=== PATIENT | female | born 1990 | race African-American/Black ===

== ENCOUNTER 2017-09-02 15:57 | Emergency (ER) | payer MEDICAID, OTHER ==
[~2017-09-02 15:57] MED LIST: REST30CA PO; RISP2TAB2 PO
[2017-09-02 16:39] VITALS: BP 142/65; PULSE 83; RESP 18; TEMP 97.2; O2SAT 100
[2017-09-02] MEDS ORDERED: ACETAMINOPHEN 325 MG TAB PO ONE (17:30)
[2017-09-02] MEDS ORDERED: ARIPiprazole 5 MG TAB PO ONE (17:30)
--- NOTE | 2017-09-02 17:30 | PD ---
HPI Chief Complaint: Psychiatric Symptoms Time Seen by Provider: 17:24 Travel History International Travel<30 days: No Contact w/Intl Traveler<30days: No Traveled to known affect area: No History of Present Illness HPI 26-year-old female history of schizophrenia presents under Ham act initiated by nurse practitioner at [facility] outpatient clinic. According to the Ham act form, "patient is stating that she wants to kill her self (she plans to run into the wall with a knife to her chest). Patient is stating that she desired to kill others (" anyone that comes after me") "hoping and praying that they , they are trying to torture me." She completed a PHQ9 with a score of 23 and indicating that she is having thoughts of being better off or of hurting herself." The patient endorses previous thoughts of suicidal ideation but none currently. She does endorse auditory hallucinations on a chronic basis. She is denying any homicidal ideation, drug or alcohol use. She is not currently under any treatment regimen for her schizophrenia. Her only medical complaint at this time is of a migraine. PFSH Past Medical History Asthma: Yes Blood Disorders: No Cardiovascular Problems: No Diminished Hearing: No Endocrine: No Genitourinary: No Immune Disorder: No Musculoskeletal: No Neurologic: No Reproductive: No Respiratory: No Schizophrenia: Yes : 2 Para: 2 Past Surgical History Section: Yes (X2) Other Surgery: No Social History Alcohol Use: No Tobacco Use: Yes Substance Use: No Allergies-Medications (Allergen,Severity, Reaction): Coded Allergies: No Known Allergies (Verified , 10/13/13) Reported Meds & Prescriptions Reported Meds & Active Scripts Active Review of Systems Except as stated in HPI: all other systems reviewed are Neg Physical Exam Narrative GENERAL: Well-nourished female in no acute distress SKIN: Warm and dry. HEAD: Atraumatic. Normocephalic. EYES: Pupils equal and round. No scleral icterus. No injection or drainage. ENT: No nasal bleeding or discharge. Mucous membranes pink and moist. NECK: Trachea midline. No JVD. CARDIOVASCULAR: Regular rate and rhythm. No murmur appreciated. RESPIRATORY: No accessory muscle use. Clear to auscultation. Breath sounds equal bilaterally. GASTROINTESTINAL: Abdomen soft, non-tender, nondistended. Hepatic and splenic margins not palpable. MUSCULOSKELETAL: No obvious deformities. No clubbing. No cyanosis. No edema. NEUROLOGICAL: Awake and alert. No obvious cranial nerve deficits. Motor grossly within normal limits. Normal speech. PSYCHIATRIC: Flat affect, insight and judgment appear reasonable. Data Data Last Documented VS Vital Signs Date Time Temp Pulse Resp B/P (MAP) Pulse Ox O2 Delivery O2 Flow Rate FiO2 09/02/17 16:39 97.2 83 18 142/65 (90) 100 Room Air Orders Orders Complete Blood Count With Diff (09/02/17 17:08) Comprehensive Metabolic Panel (09/02/17 17:08) Ed Urine Pregnancytest Poc (09/02/17 17:08) Psych Screen (09/02/17 17:08) Drug Screen, Random Urine (09/02/17 17:08) Alcohol (Ethanol) (09/02/17 17:08) Acetaminophen (Tylenol) (09/02/17 17:30) Aripiprazole (Abilify) (09/02/17 17:30) Diet Regular Basic (09/02/17 Dinner) Labs Laboratory Tests Test 09/02/17 18:40 09/02/17 19:15 White Blood Count 7.0 TH/MM3 Red Blood Count 4.57 MIL/MM3 Hemoglobin 12.7 GM/DL Hematocrit 37.6 % Mean Corpuscular Volume 82.4 FL Mean Corpuscular Hemoglobin 27.8 PG Mean Corpuscular Hemoglobin Concent 33.8 % Red Cell Distribution Width 14.7 % Platelet Count 210 TH/MM3 Mean Platelet Volume 10.8 FL Neutrophils (%) (Auto) 51.4 % Lymphocytes (%) (Auto) 37.1 % Monocytes (%) (Auto) 8.7 % Eosinophils (%) (Auto) 2.0 % Basophils (%) (Auto) 0.8 % Neutrophils # (Auto) 3.6 TH/MM3 Lymphocytes # (Auto) 2.6 TH/MM3 Monocytes # (Auto) 0.6 TH/MM3 Eosinophils # (Auto) 0.1 TH/MM3 Basophils # (Auto) 0.1 TH/MM3 CBC Comment DIFF FINAL Differential Comment Blood Urea Nitrogen 13 MG/DL Creatinine 0.94 MG/DL Random Glucose 89 MG/DL Total Protein 7.6 GM/DL Albumin 3.6 GM/DL Calcium Level 8.7 MG/DL Alkaline Phosphatase 59 U/L Aspartate Amino Transf (AST/SGOT) 14 U/L Alanine Aminotransferase (ALT/SGPT) 19 U/L Total Bilirubin 0.3 MG/DL Sodium Level 138 MEQ/L Potassium Level 3.8 MEQ/L Chloride Level 104 MEQ/L Carbon Dioxide Level 27.7 MEQ/L Anion Gap 6 MEQ/L Estimat Glomerular Filtration Rate 86 ML/MIN Ethyl Alcohol Level LESS THAN 3 MG/DL Urine Opiates Screen NEG Urine Barbiturates Screen NEG Urine Amphetamines Screen NEG Urine Benzodiazepines Screen NEG Urine Cocaine Screen NEG Urine Cannabinoids Screen NEG MDM Medical Decision Making Medical Screen Exam Complete: Yes Emergency Medical Condition: Yes Medical Record Reviewed: Yes Differential Diagnosis Acute psychosis, substance-induced mood disorder, medication noncompliance, major depressive disorder, schizophrenia, schizoaffective disorder Narrative Course 26-year-old female presents under Ham act for psychiatric evaluation. Mental health screening discussed with the patient. Psychiatric screen ordered. The patient is medically cleared for psychiatric disposition. Diagnosis Primary Impression: Medical clearance for psychiatric admission Jamie Suarez Sep 02, 2017 17:30
[2017-09-02 19:13] LABS: AUTOMATED NEUTROPHIL # 3.6 TH/MM3 (1.8-7.7); BASOPHIL # 0.1 TH/MM3 (0-0.2); BASOPHIL % 0.8 % (0.0-2.0); EOSINOPHIL # 0.1 TH/MM3 (0-0.4); HEMATOCRIT 37.6 % (35.0-46.0); HEMO FLAGS DIFF FINAL; LYMPH % 37.1 % (9.0-44.0); LYMPHOCYTE # 2.6 TH/MM3 (1.0-4.8); MEAN CELL VOLUME 82.4 FL (80.0-100.0); MEAN CORPUSCULAR HEMOGLOBIN 27.8 PG (27.0-34.0); MEAN CORPUSCULAR HGB CONC 33.8 % (32.0-36.0); MONO % 8.7 % (0.0-8.0); NEUT % 51.4 % (16.0-70.0); PLATELET COUNT 210 TH/MM3 (150-450); RED BLOOD COUNT 4.57 MIL/MM3 (4.00-5.30); RED CELL DISTRIBUTION WIDTH 14.7 % (11.6-17.2)
[2017-09-02 19:36] LABS: ANION GAP 6 MEQ/L (5-15); AST (GOT) 14 U/L (15-37); BICARBONATE 27.7 MEQ/L (21.0-32.0); BLOOD UREA NITROGEN 13 MG/DL (7-18); CHLORIDE 104 MEQ/L (98-107); GLOMERULAR FILTRATION RATE 86 ML/MIN (>89); POTASSIUM 3.8 MEQ/L (3.5-5.1); SODIUM (NA) 138 MEQ/L (136-145)
[2017-09-02 19:40] LABS: ALKALINE PHOSPHATASE 59 U/L (45-117); ALT (GPT) 19 U/L (10-53); TOTAL BILIRUBIN ADULT 0.3 MG/DL (0.2-1.0)
[2017-09-02 19:48] LABS: ALCOHOL LESS THAN 3 MG/DL (0-5)
[2017-09-02 22:49] VITALS: BP 124/59; PULSE 68; RESP 18; O2SAT 98
[2017-09-03 02:42] VITALS: BP 120/56; PULSE 64; RESP 16; TEMP 98.6; O2SAT 96
[2017-09-03 06:28] VITALS: BP 120/57; PULSE 69; RESP 16; TEMP 97.6; O2SAT 99
--- NOTE | 2017-09-03 15:00 | PD ---
History of Present Illness Chief Complaint: Psychiatric Symptoms Time Seen by Provider: 14:00 Travel History International Travel<30 Days: No Contact w/Intl Traveler<30days: No Known affected area: No Legal Status Legal Status: Ham Act Ham Act Signed By: Shantel Hays History of Present Illness: History of Present Illness HPI 26-year-old female history of schizophrenia presents under Ham act initiated by nurse practitioner at [facility] outpatient clinic. According to the Ham act form, "patient is stating that she wants to kill her self (she plans to run into the wall with a knife to her chest). Patient is stating that she desired to kill others (" anyone that comes after me") "hoping and praying that they , they are trying to torture me." She completed a PHQ9 with a score of 23 and indicating that she is having thoughts of being better off or of hurting herself." The patient endorses previous thoughts of suicidal ideation but none currently. She does endorse auditory hallucinations on a chronic basis. She is denying any homicidal ideation, drug or alcohol use. She is not currently under any treatment regimen for her schizophrenia. Her only medical complaint at this time is of a migraine. PFSH Past Medical History Asthma: Yes Blood Disorders: No Cardiovascular Problems: No Diminished Hearing: No Endocrine: No Gastrointestinal Disorders: No Genitourinary: No Immune Disorder: No Musculoskeletal: No Neurologic: No Reproductive: No Respiratory: No Schizophrenia: Yes ?: Not : 2 Para: 2 Past Surgical History Section: Yes (X2) Other Surgery: No Psychiatric History Psychiatric History Hx Psychiatric Treatment: [facility] History of Inpatient Treatment: No Social History Hx Alcohol Use: No Hx Tobacco Use: Yes Hx Substance Use: No Substance Use Type: Alcohol, Marijuana Other Substances Used: Pt denied Hx of Substance Use Treatment: No Allergies-Medications (Allergen,Severity, Reaction): Coded Allergies: No Known Allergies (Verified , 10/13/13) Reported Meds & Prescriptions Reported Meds & Active Scripts Active MDM Medical Decision Making Medical Record Reviewed: Yes Orders Orders Complete Blood Count With Diff (09/02/17 17:08) Comprehensive Metabolic Panel (09/02/17 17:08) Ed Urine Pregnancytest Poc (09/02/17 17:08) Psych Screen (09/02/17 17:08) Drug Screen, Random Urine (09/02/17 17:08) Alcohol (Ethanol) (09/02/17 17:08) Acetaminophen (Tylenol) (09/02/17 17:30) Aripiprazole (Abilify) (09/02/17 17:30) Diet Regular Basic (09/02/17 Dinner) Diet Regular Basic (09/03/17 Breakfast) Diet Regular Basic (09/03/17 Lunch) Diet Regular Basic (09/03/17 Dinner) Results Vital Signs Date Time Temp Pulse Resp B/P (MAP) Pulse Ox O2 Delivery O2 Flow Rate FiO2 09/03/17 06:28 97.6 69 16 120/57 (78) 99 Room Air 09/03/17 02:42 98.6 64 16 120/56 (77) 96 Room Air 09/02/17 22:49 68 18 124/59 (80) 98 Room Air 09/02/17 16:39 97.2 83 18 142/65 (90) 100 Room Air Laboratory Tests Test 09/02/17 18:40 09/02/17 19:15 White Blood Count 7.0 Red Blood Count 4.57 Hemoglobin 12.7 Hematocrit 37.6 Mean Corpuscular Volume 82.4 Mean Corpuscular Hemoglobin 27.8 Mean Corpuscular Hemoglobin Concent 33.8 Red Cell Distribution Width 14.7 Platelet Count 210 Mean Platelet Volume 10.8 Neutrophils (%) (Auto) 51.4 Lymphocytes (%) (Auto) 37.1 Monocytes (%) (Auto) 8.7 Eosinophils (%) (Auto) 2.0 Basophils (%) (Auto) 0.8 Neutrophils # (Auto) 3.6 Lymphocytes # (Auto) 2.6 Monocytes # (Auto) 0.6 Eosinophils # (Auto) 0.1 Basophils # (Auto) 0.1 CBC Comment DIFF FINAL Differential Comment Blood Urea Nitrogen 13 Creatinine 0.94 Random Glucose 89 Total Protein 7.6 Albumin 3.6 Calcium Level 8.7 Alkaline Phosphatase 59 Aspartate Amino Transf (AST/SGOT) 14 Alanine Aminotransferase (ALT/SGPT) 19 Total Bilirubin 0.3 Sodium Level 138 Potassium Level 3.8 Chloride Level 104 Carbon Dioxide Level 27.7 Anion Gap 6 Estimat Glomerular Filtration Rate 86 Ethyl Alcohol Level LESS THAN 3 Urine Opiates Screen NEG Urine Barbiturates Screen NEG Urine Amphetamines Screen NEG Urine Benzodiazepines Screen NEG Urine Cocaine Screen NEG Urine Cannabinoids Screen NEG Diagnosis Primary Impression: Medical clearance for psychiatric admission Psychiatrically Cleared: Yes Leticia Monaslve Sep 03, 2017 15:00
--- NOTE | 2017-09-03 15:15 | PD ---
History of Present Illness Chief Complaint: Psychiatric Symptoms Time Seen by Provider: 14:00 Travel History International Travel<30 Days: No Contact w/Intl Traveler<30days: No Known affected area: No Legal Status Legal Status: Ham Act Ham Act Signed By: Shantel Hays History of Present Illness: History of Present Illness HPI 26-year-old female with a reported history of schizoaffective disorder bipolar type who presents under Ham act initiated by nurse practitioner at [facility] outpatient clinic. The Ham act form alleges that, "patient is stating that she wants to kill her self (she plans to run into the wall with a knife to her chest). Patient is stating that she desired to kill others (" anyone that comes after me") "hoping and praying that they , they are trying to torture me." It appears that the patient had called [facility] a month ago and requested an appointment to start her psychiatric treatment after a 3 year hiatus. She goes on to tell me that when the provider Sushma to questions she reported that she had the thoughts of wanting to harm herself and harm others in the past but that she was not having those thoughts now. She states she was surprised when she was placed under the Ham act. The patient has been monitored in [facility] over an extended period of time and she has presented no behavioral dysregulation, no suicidality, no aggressive behavior. She was started on Abilify which she states that she's had in the past and tolerated it well. Electronic medical record is reviewed. The patient has 2 previous psychiatric admissions to the psychiatric unit. Her first admission was in 2007 after an allegedly overdose. In 2013 she was admitted once again under the care of Dr. Ma and this was after her children were removed from her custody. Current toxicology is negative for any substances. The patient is seen in her room with Ab employment evaluator/case manager. She is dressed in [facility] with fair hygiene. The patient speaks in a very soft tone of voice but engages well and is cooperative. She once again tells me that the symptoms that she reported were in the past and not present. She also states that she threatened to kill the voices inside of her head and not actual people. She does not appear internally stimulated and does endorse chronic and persistent auditory hallucinations. The patient does not endorse significant symptom of depression or anxiety. She denies current suicidal or homicidal ideation intent or plan. She is requesting to be discharge and wants to follow up with her medication at [facility]. She also wants to be able to get on medication so that she can get her disability reinstated. PFSH Past Medical History Asthma: Yes Blood Disorders: No Cardiovascular Problems: No Diminished Hearing: No Endocrine: No Gastrointestinal Disorders: No Genitourinary: No Immune Disorder: No Musculoskeletal: No Neurologic: No Reproductive: No Respiratory: No Schizophrenia: Yes ?: Not : 2 Para: 2 Past Surgical History Section: Yes (X2) Other Surgery: No Psychiatric History Psychiatric History Hx Psychiatric Treatment: [facility] 3 years ago. Last psychiatric hospitalization 2013 at [facility]. Has had 2 lifetime hospitalizations. One previous suicidal ideation by overdose on pills in 2007. History of Inpatient Treatment: Yes Guns or firearms in home: No Social History Single, never female. Has 2 daughters that have been taken away from her and are in foster care. She currently lives with her mother [place]. She is unemployed and had been on disability. She has completed high school. Hx Alcohol Use: No Hx Tobacco Use: Yes Hx Substance Use: No Substance Use Type: Alcohol, Marijuana Other Substances Used: Pt denied Hx of Substance Use Treatment: No Allergies-Medications (Allergen,Severity, Reaction): Coded Allergies: No Known Allergies (Verified , 10/13/13) Reported Meds & Prescriptions Reported Meds & Active Scripts Active Review of Systems Psychiatric: COMPLAINS OF: Hallucinations Except as stated in HPI: all other systems reviewed are Neg Mental Status Examination Appearance: Malodorous Consciousness: Alert Orientation: x4 Motor Activity: Normal gait Speech: Other (very soft tone but normal rate and rhythm.) Language: Adequate Fund of Knowledge: Adequate Attention and Concentration: Easily Distracted Memory: Unremarkable Mood: Appropriate Affect: Appropriate Thought Process & Associations: Intact, Logical, Goal directed Thought Content: Appropriate Hallucination Type: Auditory (reports chronic auditory hallucinations noncommand type) Delusion Type: None Suicidal Ideation: No Suicidal Plan: No Suicidal Intention: No Homicidal Ideation: No Homicidal Plan: No Homicidal Intention: No Insight: Fair Judgment: Adequate MDM Medical Decision Making Medical Record Reviewed: Yes Assessment/Plan 26-year-old female with a reported history of schizoaffective disorder bipolar type who presents under Ham act initiated by nurse practitioner at [facility] outpatient clinic. The Ham act form alleges that, the patient reported suicidal ideations as well as homicidal ideations at the time of the evaluation. It appears that the patient had called [facility] a month ago and requested an appointment to start her psychiatric treatment after a 3 year hiatus. She goes on to tell me that when the provider Sushma to questions she reported that she had the thoughts of wanting to harm herself and harm others in the past but that she was not having those thoughts now. The patient has been monitored in J pod over an extended period of time and she has presented no behavioral dysregulation, no suicidality, no aggressive behavior. She is requesting to be discharge and does not meet criteria to be retained under involuntary status. She is agreeable on going back to [facility] for medications on Wednesday. She is unable to secure funds to buy any other medicine if she were to get a prescription from us today. The Ham act is lifted. The patient is psychiatrically clear for discharge. Orders Orders Complete Blood Count With Diff (09/02/17 17:08) Comprehensive Metabolic Panel (09/02/17 17:08) Ed Urine Pregnancytest Poc (09/02/17 17:08) Psych Screen (09/02/17 17:08) Drug Screen, Random Urine (09/02/17 17:08) Alcohol (Ethanol) (09/02/17 17:08) Acetaminophen (Tylenol) (09/02/17 17:30) Aripiprazole (Abilify) (09/02/17 17:30) Diet Regular Basic (09/02/17 Dinner) Diet Regular Basic (09/03/17 Breakfast) Diet Regular Basic (09/03/17 Lunch) Diet Regular Basic (09/03/17 Dinner) Results Vital Signs Date Time Temp Pulse Resp B/P (MAP) Pulse Ox O2 Delivery O2 Flow Rate FiO2 09/03/17 06:28 97.6 69 16 120/57 (78) 99 Room Air 09/03/17 02:42 98.6 64 16 120/56 (77) 96 Room Air 09/02/17 22:49 68 18 124/59 (80) 98 Room Air 09/02/17 16:39 97.2 83 18 142/65 (90) 100 Room Air Laboratory Tests Test 09/02/17 18:40 09/02/17 19:15 White Blood Count 7.0 Red Blood Count 4.57 Hemoglobin 12.7 Hematocrit 37.6 Mean Corpuscular Volume 82.4 Mean Corpuscular Hemoglobin 27.8 Mean Corpuscular Hemoglobin Concent 33.8 Red Cell Distribution Width 14.7 Platelet Count 210 Mean Platelet Volume 10.8 Neutrophils (%) (Auto) 51.4 Lymphocytes (%) (Auto) 37.1 Monocytes (%) (Auto) 8.7 Eosinophils (%) (Auto) 2.0 Basophils (%) (Auto) 0.8 Neutrophils # (Auto) 3.6 Lymphocytes # (Auto) 2.6 Monocytes # (Auto) 0.6 Eosinophils # (Auto) 0.1 Basophils # (Auto) 0.1 CBC Comment DIFF FINAL Differential Comment Blood Urea Nitrogen 13 Creatinine 0.94 Random Glucose 89 Total Protein 7.6 Albumin 3.6 Calcium Level 8.7 Alkaline Phosphatase 59 Aspartate Amino Transf (AST/SGOT) 14 Alanine Aminotransferase (ALT/SGPT) 19 Total Bilirubin 0.3 Sodium Level 138 Potassium Level 3.8 Chloride Level 104 Carbon Dioxide Level 27.7 Anion Gap 6 Estimat Glomerular Filtration Rate 86 Ethyl Alcohol Level LESS THAN 3 Urine Opiates Screen NEG Urine Barbiturates Screen NEG Urine Amphetamines Screen NEG Urine Benzodiazepines Screen NEG Urine Cocaine Screen NEG Urine Cannabinoids Screen NEG Diagnosis Primary Impression: Medical clearance for psychiatric admission Additional Impression: Schizoaffective disorder Psychiatrically Cleared: Yes Med/ Other Pt Specific Info: No Meds Exist/No RX given Disposition: DISCHARGE HOME Condition: Stable Problem Qualifiers Additional Impression: Schizoaffective disorder Qualified Codes: F25.0 - Schizoaffective disorder, bipolar type Leticia Monsalve PATIENT SERVICE REP Sep 03, 2017 15:15
--- NOTE | 2017-09-03 15:53 | PD ---
Physical Exam Narrative I was asked by the psych department to discharge patient after patient was evaluated and Ham acted lifted by psych. Patient was previously medically cleared by previous provider. Please see their documentation for full H&P. Patient denies any homicidal or suicidal ideations. Denies any medical concerns at this time. Data Data Last Documented VS Vital Signs Date Time Temp Pulse Resp B/P (MAP) Pulse Ox O2 Delivery O2 Flow Rate FiO2 09/03/17 06:28 97.6 69 16 120/57 (78) 99 Room Air Orders Orders Complete Blood Count With Diff (09/02/17 17:08) Comprehensive Metabolic Panel (09/02/17 17:08) Ed Urine Pregnancytest Poc (09/02/17 17:08) Psych Screen (09/02/17 17:08) Drug Screen, Random Urine (09/02/17 17:08) Alcohol (Ethanol) (09/02/17 17:08) Acetaminophen (Tylenol) (09/02/17 17:30) Aripiprazole (Abilify) (09/02/17 17:30) Diet Regular Basic (09/02/17 Dinner) Diet Regular Basic (09/03/17 Breakfast) Diet Regular Basic (09/03/17 Lunch) Diet Regular Basic (09/03/17 Dinner) Labs Laboratory Tests Test 09/02/17 18:40 09/02/17 19:15 White Blood Count 7.0 TH/MM3 Red Blood Count 4.57 MIL/MM3 Hemoglobin 12.7 GM/DL Hematocrit 37.6 % Mean Corpuscular Volume 82.4 FL Mean Corpuscular Hemoglobin 27.8 PG Mean Corpuscular Hemoglobin Concent 33.8 % Red Cell Distribution Width 14.7 % Platelet Count 210 TH/MM3 Mean Platelet Volume 10.8 FL Neutrophils (%) (Auto) 51.4 % Lymphocytes (%) (Auto) 37.1 % Monocytes (%) (Auto) 8.7 % Eosinophils (%) (Auto) 2.0 % Basophils (%) (Auto) 0.8 % Neutrophils # (Auto) 3.6 TH/MM3 Lymphocytes # (Auto) 2.6 TH/MM3 Monocytes # (Auto) 0.6 TH/MM3 Eosinophils # (Auto) 0.1 TH/MM3 Basophils # (Auto) 0.1 TH/MM3 CBC Comment DIFF FINAL Differential Comment Blood Urea Nitrogen 13 MG/DL Creatinine 0.94 MG/DL Random Glucose 89 MG/DL Total Protein 7.6 GM/DL Albumin 3.6 GM/DL Calcium Level 8.7 MG/DL Alkaline Phosphatase 59 U/L Aspartate Amino Transf (AST/SGOT) 14 U/L Alanine Aminotransferase (ALT/SGPT) 19 U/L Total Bilirubin 0.3 MG/DL Sodium Level 138 MEQ/L Potassium Level 3.8 MEQ/L Chloride Level 104 MEQ/L Carbon Dioxide Level 27.7 MEQ/L Anion Gap 6 MEQ/L Estimat Glomerular Filtration Rate 86 ML/MIN Ethyl Alcohol Level LESS THAN 3 MG/DL Urine Opiates Screen NEG Urine Barbiturates Screen NEG Urine Amphetamines Screen NEG Urine Benzodiazepines Screen NEG Urine Cocaine Screen NEG Urine Cannabinoids Screen NEG MDM Supervised Visit with TIFFANIE: No Narrative Course Patient in no obvious distress upon re-evaluation. Patient ambulated without difficulty out of ED at discharge. Diagnosis Primary Impression: Medical clearance for psychiatric admission Additional Impression: Schizoaffective disorder Qualified Codes: F25.0 - Schizoaffective disorder, bipolar type Referrals: [facility] Patient Instructions: General Instructions Additional Instruction: Follow-up with your primary care physician and/or [facility] next week for reevaluation. Return to the emergency department if symptoms get worse. Disposition: 01 DISCHARGE HOME Condition: Stable Andrae Gibson Sep 03, 2017 15:53
== END 2017-09-03 17:47 | disposition home or self-care (01) ==
LOC: NEPJ 15:57
DX: F25.0 Schizoaffective disorder, bipolar type (principal)
CPT/HCPCS: 80053; 80307; 84703; 85025; 99283

== ENCOUNTER 2018-01-12 02:19 | Emergency (ER) | payer MEDICAID ==
[~2018-01-12] VITALS: Ht 167.6 cm; Wt 80.0 kg
[2018-01-12 02:27] VITALS: BP 128/77; PULSE 110; RESP 16; TEMP 98.2; O2SAT 96
[2018-01-12 04:14] LABS: BILIRUBIN, URINE NEG (NEG); BLOOD, URINE NEG (NEG); GLUCOSE,URINE NEG (NEG); HYALINE CAST, URINE 2 /lpf (RARE); KETONE, URINE 40 mg/dL (NEG); MUCUS URINE MOD /lpf (OCC); NITRITE,URINE NEG (NEG); SQUAMOUS EPITHELIAL CELL URINE 14 /hpf (0-5); URINE COLOR YELLOW (YELLW/STRAW); URINE LEUKOCYTE ESTERASE NEG (NEG)
--- NOTE | 2018-01-12 04:41 | RADRPT ---
EXAM DATE/TIME: 01/12/2018 04:16 [place] COMPARISON: No previous studies available for comparison. INDICATIONS : Evaluate for obstruction. MEDICAL HISTORY : None. SURGICAL HISTORY : section. ENCOUNTER: Initial ACUITY: 1 day PAIN SCORE: 5/10 LOCATION: abdomen, all quadrants. FINDINGS: Supine view of the abdomen was performed. The abdominal bowel gas pattern is normal. No abnormal ma sses, calcifications, or organomegaly is seen. The osseous structures are unremarkable. CONCLUSION: No acute disease. No obstruction. Ignacio Bowden MD on January 12, 2018 at 4:39 Board Certified Radiologist. This report was verified electronically.
[2018-01-12] MEDS ORDERED: AZITHROMYCIN PWD FOR SUSP 1 GM PACKET PO ONE (05:00)
[2018-01-12] MEDS ORDERED: LIDOCAINE HCL 1% 50 ML VIAL IM ONE (05:00)
[2018-01-12] MEDS ORDERED: cefTRIAXone 250 MG VIAL IM ONE (05:00)
[2018-01-12] MEDS ORDERED: LIDOCAINE HCL 1% 10 ML VIAL OTHER ONE (05:15)
[2018-01-12] MEDS ORDERED: DIFL150T PO (05:18)
[2018-01-12] MEDS ORDERED: MIRA3350 PO (05:18)
--- NOTE | 2018-01-12 05:21 | PD ---
HPI Chief Complaint: Tool Builder Problem/Complaint Time Seen by Provider: 02:54 Travel History International Travel<30 days: No Contact w/Intl Traveler<30days: No Traveled to known affect area: No History of Present Illness HPI The patient is a 27 year old female who presents to the [facility] emergency department with a history of while lying in bed just prior to arrival noticing a sharp pain in her vagina and rectum. She denies having any vaginal discharge associated with this. She denies using any toys or having sex recently. She denies having any new sexual partners or concerns about sexually transmitted infections. She denies having any abdominal pain. She reports that she has had some constipation recently. She reports that her stools have been harder than usual. Her last bowel movement was 1 day ago, however prior to that it was 3 days ago. She reports that she normally moves her bowels on a daily basis. She denies having any dysuria, urinary frequency, or urinary urgency. On review of systems otherwise, she denies having any recent known fevers, cough, congestion, neck pain, chest pain, shortness of breath,vomiting, diarrhea, or neurologic symptoms. LMP: January 04, 2018. [facility] Past Medical History Narrative Medical The patient's past medical history is significant for asthma, paranoid schizophrenia, posttraumatic stress disorder. Asthma: Yes Blood Disorders: No Cardiovascular Problems: No Diminished Hearing: No Endocrine: No Gastrointestinal Disorders: No Genitourinary: No Immune Disorder: No Musculoskeletal: No Neurologic: No Psychiatric: Yes (PTSD) Reproductive: No Respiratory: No Schizophrenia: Yes (parniod) Tetanus Vaccination: < 5 Years Influenza Vaccination: No ?: Unknown LMP: 01/04/2018 : 2 Para: 2 Past Surgical History Narrative Surgical The patient's past surgical history is significant for a 2 Section: Yes (X2) Other Surgery: No Social History Alcohol Use: No Tobacco Use: Yes Substance Use: No Allergies-Medications (Allergen,Severity, Reaction): Coded Allergies: No Known Allergies (Verified , 10/13/13) Reported Meds & Prescriptions Reported Meds & Active Scripts Active Diflucan (Fluconazole) 150 Mg Tab 150 Mg PO ONCE Miralax Powder (Polyethylene Glycol 3350 Powder) 17 Gm Powd 17 Gm PO DAILY Mix and dissolve one measuring cap-ful (17 grams) in water or juice. Review of Systems General / Constitutional: No: Fever Eyes: No: Visual changes HENT: No: Headaches Cardiovascular: No: Chest Pain or Discomfort Respiratory: No: Shortness of Breath Gastrointestinal: No: Abdominal Pain Genitourinary: Positive: Other (Vaginal pain and rectal pain), No: Dysuria Musculoskeletal: No: Pain Skin: No Rash Neurologic: No: Weakness Psychiatric: No: Depression Endocrine: No: Polydipsia Hematologic/Lymphatic: No: Easy Bruising Physical Exam Narrative General: The patient is a well-developed well-nourished female in no acute distress. Head and Neck exam: Head is normocephalic atraumatic. Eyes: EOMI, pupils are equal round and reactive to light. Nose: Midline septum with pink mucous membranes Mouth: Dentition unremarkable. Moist mucus membranes. Posterior oropharynx is not erythematous. No tonsillar hypertrophy. Uvula midline. Airway patent. Neck: No palpable lymphadenopathy. No nuchal rigidity. No thyromegaly. Cardiovascular: Regular rate and rhythm without murmurs, gallops, or rubs. Lungs: Clear to auscultation bilaterally. No wheezes, rhonchi, or rales. Abdomen: Soft, without tenderness to palpation in all 4 quadrants of the abdomen. No guarding, rebound, or rigidity. Normal bowel sounds are audible. No tenderness on palpation of McBurney's point. Extremities: No clubbing, cyanosis, or edema. 2+ pulses in all 4 extremities. Back: No costovertebral angle tenderness to palpation. Neurologic Exam: Grossly nonfocal. Skin Exam: No rash noted. Intact skin that is warm and dry. Gynecologic exam: The patient was placed in the dorsal lithotomy position. Her external genitalia were examined. She had no evidence of rash or lesions. The speculum was placed into her vagina and the cervix was identified. She had a thick white discharge. No foreign body. no cervical friability. On Bimanual exam: she has no cervical motion tenderness. No adnexal tenderness or prominence noted on palpation. No uterine tenderness or enlargement noted on palpation. RECTAL EXAM: No masses or tenderness, stool is brown. Stool is Hemoccult negative. No foreign body palpated. Data Data Last Documented VS Vital Signs Date Time Temp Pulse Resp B/P (MAP) Pulse Ox O2 Delivery O2 Flow Rate FiO2 01/12/18 02:27 98.2 110 16 128/77 (94) 96 Orders Orders Gc And Chlamydia Pcr (01/12/18 02:56) Wet Prep Profile (01/12/18 02:56) Urinalysis - C+S If Indicated (01/12/18 02:56) Ed Urine Pregnancytest Poc (01/12/18 02:56) Abdomen, Kub Only (01/12/18 04:04) Azithromycin Powd Pack (Zithromax Powd P (01/12/18 05:00) Ceftriaxone Inj (Rocephin Inj) (01/12/18 05:00) Lidocaine 1% Inj (Xylocaine 1% Inj) (01/12/18 05:15) Labs Laboratory Tests Test 01/12/18 03:15 01/12/18 04:00 Urine Color YELLOW Urine Turbidity HAZY Urine pH 6.0 Urine Specific Sheldon 1.028 Urine Protein TRACE mg/dL Urine Glucose (UA) NEG mg/dL Urine Ketones 40 mg/dL Urine Occult Blood NEG Urine Nitrite NEG Urine Bilirubin NEG Urine Urobilinogen 2.0 MG/DL Urine Leukocyte Esterase NEG Urine RBC LESS THAN 1 /hpf Urine WBC 1 /hpf Urine Squamous Epithelial Cells 14 /hpf Urine Hyaline Casts 2 /lpf Urine Mucus MOD /lpf Microscopic Urinalysis Comment CULT NOT INDICATED Clue Cells (Wet Prep) NONE SEEN Vaginal Trichomonas (Wet Prep) NONE SEEN Vaginal Yeast (Wet Prep) PRESENT MDM Medical Decision Making Medical Screen Exam Complete: Yes Emergency Medical Condition: Yes Medical Record Reviewed: Yes Interpretation(s) Last Impressions Abdomen X-Ray 01/12/18 0404 Signed Impressions: Service Date/Time: Friday, January 12, 2018 04:16 - CONCLUSION: No acute disease. No obstruction. Ignacio Bowden MD Differential Diagnosis Cervicitis, versus PID, versus constipation, versus trichomoniasis, versus yeast vaginitis, versus foreign body, versus bacterial vaginosis Narrative Course During the course of the patient's emergency department visit, the patient's history, examination, and differential diagnosis were reviewed with the patient. The patient was placed on a cardiac rehabilitation program director with oximetry and frequent blood pressure monitoring. The patient had a GC and chlamydia sent for analysis , wet prep ordered, bedside test was done and reportedly negative, KUB was ordered. The patient was initially provided Rocephin 250 IM, Zithromax 1 g p.o. The patient's laboratory studies were reviewed and remarkable for a wet prep that showed yeast. The KUB that shows no evidence of obstruction, nonspecific bowel gas pattern. The patient will be discharged home with a prescription for MiraLAX for constipation and Diflucan for yeast vaginitis. The patient is resting comfortably and feels better, is alert and in no distress. The patient's results and examination findings were discussed with the patient. The repeat examination is unremarkable and benign. The history, exam, diagnostic testing, and current condition do not suggest any significant pathology to warrant further testing, continued ED treatment, admission, or surgical evaluation at this point. The vital signs have been stable. The patient does not have uncontrollable pain, intractable vomiting, or other significant symptoms. The patient's condition is stable and appropriate for discharge. The patient will pursue further outpatient evaluation with a primary care physician or other designated or consulting physician as indicated in the discharge instructions. The patient expressed understanding and was agreeable with this plan. Diagnosis Primary Impression: Constipation Qualified Codes: K59.00 - Constipation, unspecified Additional Impression: Yeast vaginitis Patient Instructions: Constipation (ED), General Instructions, Vulvovaginal Candidiasis (ED) Med/Other Pt SpecificInfo: Prescription(s) given Scripts Fluconazole (Diflucan) 150 Mg Tab 150 MG PO ONCE for Infection, #1 TAB 0 Refills Prov: Naya Villa MD 01/12/18 Polyethylene Glycol 3350 Powder (Miralax Powder) 17 Gm Powd 17 GM PO DAILY for Constipation, #1 CAN 0 Refills Mix and dissolve one measuring cap-ful (17 grams) in water or juice. Prov: Naya Villa MD 01/12/18 Disposition: 01 DISCHARGE HOME Condition: Stable Naya Villa MD Jan 12, 2018 05:21
== END 2018-01-12 06:25 | disposition home or self-care (01) ==
LOC: NEPE 02:19
DX: K59.00 Constipation, unspecified (principal); B37.3 Candidiasis of vulva and vagina; J45.909 Unspecified asthma, uncomplicated; F20.0 Paranoid schizophrenia; F43.10 Post-traumatic stress disorder, unspecified; Z72.0 Tobacco use
CPT/HCPCS: 74018; 81001; 84703; 87210; 87491; 87591; 96372; 99284; J0696